=== PATIENT | female | born 1965 | race Caucasian/White ===

== ENCOUNTER 2017-02-13 00:19 | Inpatient (IN) | payer BC, OTHER ==
[~2017-02-13] VITALS: Ht 170.2 cm; Wt 82.1 kg
[2017-02-13 04:00] VITALS: BP 111/49
[2017-02-13] MEDS ORDERED: SPIRONOLACTONE1 GM PO (04:22)
[2017-02-13 07:14] LABS: BASOPHILS % (AUTO) 0.9 % (0.0-2.0); EOSINOPHILS % (AUTO) 2.3 % (0.0-3.0); LYMPHOCYTES % (AUTO) 38.2 % (20.0-45.0); MEAN CORPUSCULAR HEMOGLOBIN 31.2 PG (27.0-31.0); MEAN CORPUSCULAR HGB CONC 33.8 G/DL (32.0-36.0); MEAN CORPUSCULAR VOLUME 92 FL (80-99); MEAN PLATELET VOLUME 8.3 FL (6.5-10.1); MONOCYTES % (AUTO) 7.2 % (1.0-10.0); NEUTROPHILS % (AUTO) 51.4 % (45.0-75.0); PLATELET COUNT 218 K/UL (150-450); RED BLOOD COUNT 4.52 M/UL (4.20-5.40); RED CELL DISTRIBUTION WIDTH 11.1 % (11.6-14.8); WHITE BLOOD COUNT 6.7 K/UL (4.8-10.8)
[2017-02-13 07:33] LABS: ALANINE AMINOTRANSFERASE 12 U/L (3-33); ALBUMIN/GLOBULIN RATIO 1.5 (1.0-2.7); ANION GAP 17 (5-15); ASPARTATE AMINO TRANSFERASE 14 U/L (5-40); CARBON DIOXIDE 22 mEQ/L (20-30); CHLORIDE 99 mEQ/L (98-107); CREATININE 0.7 mg/dL (0.5-0.9); GLOMERULAR FILTRATION RATE > 60 mL/min (>60); HEMOLYSIS 6; MAGNESIUM 2.1 mg/dL (1.7-2.5); PHOSPHORUS 3.6 mg/dL (2.5-4.8); POTASSIUM 4.3 mEQ/L (3.4-4.9); SODIUM 138 mEQ/L (135-145); TOTAL PROTEIN 6.5 g/dL (6.6-8.7)
[2017-02-13 07:35] LABS: TROPONIN I < 0.30 ng/mL (<=0.30)
[2017-02-13 08:07] VITALS: BP 111/66
[2017-02-13] MEDS ORDERED: Spironolactone 50mg tab ORAL SCH (09:00)
[2017-02-13] MEDS ORDERED: Aspirin Baby 81mg ORAL SCH (09:00)
--- NOTE | 2017-02-13 10:59 | Cardiology Report ---
APPROVED REPORT EKG Measurement Heart [id number] MA [id number] Sinus rhythm with sinus arrhythmia with short MA with frequent premature ventricular complexes Otherwise normal ECG
[2017-02-13 11:40] VITALS: BP 112/67
[2017-02-13 13:11] LABS: TROPONIN I < 0.30 ng/mL (<=0.30)
[2017-02-13] MEDS ORDERED: Heparin 5000 units/ml inj SUBQ SCH (14:00)
[2017-02-13] MEDS ORDERED: ASPIRIN81 MG ORAL (14:53)
[2017-02-13] MEDS ORDERED: PROTONIX40 MG ORAL (14:53)
--- NOTE | 2017-02-13 15:01 | History & Physical ---
History and Physical History & Physicial Matt Maguire MD Feb 13, 2017 15:01
--- NOTE | 2017-02-13 22:19 | History and Physical Report ---
DATE OF ADMISSION: 02/13/2017 CHIEF COMPLAINT: Chest discomfort. HISTORY OF PRESENT ILLNESS: This is a 51-year-old very delightful female with past medical history significant for gestational diabetes with prediabetic, who has presented to the hospital complaining about sore throat, ear fullness, fatigue, recently had a cold and as well as chest discomfort. The patient stated that she was not feeling good. She initially went to the [facility] [place] and after further evaluation the patient was brought to the [facility] for further evaluation and possible cardiac workup. The patient denies any history of coronary disease, hypertension, diabetes, dyslipidemia or smoking. She has first-degree relative with a coronary artery disease. Denies any family member with history of coronary artery disease. She recently had a treadmill stress test about seven to eight years ago and was essentially unremarkable due to the chest pain. The patient stated that she has been under a lot of stress at this time because she was looking for position job that she did not successfully obtain. PAST MEDICAL HISTORY/PAST SURGICAL HISTORY: As above. History of gestational diabetes, prediabetic, and history of . MEDICATIONS: At home is significant for spironolactone 100 mg p.o. daily for hairloss. ALLERGIES: Allergies to sulfa medications. FAMILY HISTORY: Father has history of diabetes as well as prostate cancer, hypertension, his age of 77, and alive. Mother is healthy. SOCIAL HISTORY: Denies any smoking, alcohol, or drugs. 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 REVIEW OF SYSTEMS: Mostly as above. Denies any dysuria, frequency, or hematochezia. Denies any hemoptysis or hematochezia. Denies any suicidal or homicidal ideation. Denies any loss of consciousness. Denies any double vision, complained about sore throat. Denies any suicidal or homicidal ideation. PHYSICAL EXAMINATION: VITAL SIGNS: On admission to [facility] is significant for temperature 98 degrees, pulse of 54, respiration is 20, and blood pressure 111/49. GENERAL: The patient is awake, responsive, in no acute distress. HEENT: Pupils are reactive to light. Extraocular movements are intact. NECK: Supple. No JVD. LUNGS: Good air entry. No wheezing or rales. HEART: S1 and S2. Regular rhythm. No gallops. ABDOMEN: Soft and nontender. Mildly obese. EXTREMITIES: No cyanosis, clubbing, or edema. NEUROLOGIC: Cranial nerves II through XII are grossly intact. Moves all 4 extremities. Gait is intact. LABORATORY AND DIAGNOSTIC DATA: Laboratory on admission from the [facility], WBC of 6.8, hemoglobin of 14, hematocrit 40, and platelets is 231,000. Sodium 134, potassium 2.9, chloride 102, bicarbonate 23, BUN 15, creatinine 0.71 and GFR is 87. First troponin is less than 0.02 and repeat laboratories again, two other troponins are essential unremarkable at [facility]. The patient had an echocardiogram done in the [facility], preliminary results shows the ejection fraction of 60% with no evidence of left ventricular hypertrophy. All other cardiac chamber size within normal limits. Trace to mitral and tricuspid regurgitation. Trace tricuspid systolic velocities suggests of the right ventricular systolic pressure of 38. consisted with a borderline mild pulmonary hypertension. No pulmonic regurgitation presented. This is a preliminary result. EKG was done at [facility], was noted to be sinus rhythm with a ventricular rate of 49, sinus kev and short AZ interval of frequent premature ventricular ventricular complex was identified. Sinus rhythm with the sinus arrhythmias with the [place] premature ventricular contractions, ventricular rate is 72. ASSESSMENT: 1. Chest discomfort and possible acute coronary syndrome less likely. However, cannot rule out peptic ulcer disease. 2. History of premature ventricular contractions on the EKG. 3. Prediabetic with gestational diabetic. 4. Mild obesity. PLAN: Admit the patient to telemetry. The patient insisting that she wants to go home. Discussed with the patient extensively with regards to her finding. I advised the patient to follow up my office within one week in order to obtain a stress test and further imaging as needed as outpatient since the patient does not want to stay in the hospital to get the stress test done at this time. I discussed with the patient, if her status is not improving at home and she has a frequent symptoms she needs to come to the emergency room [facility] Emergency Room in order to get the stress test and further imaging as outpatient. The patient understood and the patient's boyfriend, who was in the room and he understood as well. At this time, the patient will be discharged home on Ecotrin 81 mg daily as well as Protonix 40 mg daily plus home medications. FOLLOWUP: I advised him to follow up my office within one week. Matt Maguire M.D. DR: LUPE JOB#: [id number] CC:
--- NOTE | 2017-02-14 15:55 | Cardiology Report ---
APPROVED REPORT EXAM: Two-dimensional and M-mode echocardiogram with Doppler and color Doppler. INDICATION Chest Pain M-Mode DIMENSIONS IVSd0.7 (0.7-1.1cm)Left Atrium (MM)2.5 (1.6-4.0cm) LVDd4.7 (3.5-5.6cm)Aortic Root2.4 (2.0-3.7cm) PWd0.6 (0.7-1.1cm)Aortic Cusp Exc.1.8 (1.5-2.0cm) LVDs3.2 (2.5-4.0cm) PWs1.1 cm Normal left ventricular chamber size, systolic function and wall motion. Left ventricular ejection fraction estimated to be 60 %. No evidence of left ventricular hypertrophy. Anterior Echo-free space, may be due to pericardial fat or effusion. All other cardiac chamber sizes are within normal limits. Mild focal aortic valve sclerosis with adequate cusp excursion. Mildly thickened mitral valve leaflets with normal excursion. Mitral annulus and aortic root calcification. Normal pulmonic valve structure. / Pulmonic valve not well visualized. Normal tricuspid valve structure. IVC measured at 2.2 cm with slight physiologic collapse suggestive of RAP 15 mmHg. A color flow and spectral Doppler study was performed and revealed: No aortic regurgitation. Trace mitral regurgitation. Mitral inflow indicates normal left ventricular diastolic function. Trace to mild tricuspid regurgitation. Tricuspid systolic velocities suggests peak right ventricular systolic pressure of 38 mmHg, consistent with borderline mild pulmonary hypertension. No pulmonic regurgitation present.
--- NOTE | 2017-02-14 20:02 | Discharge Summary ---
Discharge Summary Hospital Course Date of Admission Feb 13, 2017 at 02:53 Date of Discharge Feb 13, 2017 at 15:15 Admitting Diagnosis HPI Eboni Matos is a 51 year old female who was admitted on Feb 13, 2017 at 02: 53 for Acute Coronary Syndrome Hospital Course This is a 51-year-old very delightful female with past medical history significant for gestational diabetes with prediabetic, who has presented to the hospital complaining about sore throat, ear fullness, fatigue, recently had a cold and as well as chest discomfort. The patient stated that she was not feeling good. She initially went to the [facility] and after further evaluation the patient was brought to the [facility] for further evaluation and possible cardiac workup. The patient denies any history of coronary disease, hypertension, diabetes, dyslipidemia or smoking. She has first-degree relative with a coronary artery disease. Denies any family member with history of coronary artery disease. She recently had a treadmill stress test about seven to eight years ago and was essentially unremarkable due to the chest pain. The patient stated that she has been under a lot of stress at this time because she was looking for position job that she did not successfully obtain. The patient was insisting that she wants to go home. Discussed with the patient extensively with regards to her finding. I advised the patient to follow up my office within one week in order to obtain a stress test and further imaging as needed as outpatient since the patient does not want to stay in the hospital to get the stress test done at this time. I discussed with the patient, if her status is not improving at home and she has a frequent symptoms she needs to come to the emergency room at [facility] Room in order to get the stress test and further imaging as outpatient. The patient understood and the patient's boyfriend, who was in the room and he understood as well. At this time, the patient will be discharged home on Ecotrin 81 mg daily as well as Protonix 40 mg daily plus home medications. FOLLOWUP: I advised him to follow up my office within one week. DIAGNOSIS: 1. Chest discomfort and possible acute coronary syndrome less likely. However, cannot rule out peptic ulcer disease. 2. History of premature ventricular contractions on the EKG. 3. Prediabetic with gestational diabetic. 4. Mild obesity. -------COPIED FROM H&P Discharge Discharge Disposition Patient was discharged to Home () Discharge Diagnoses: Shabana Juárez NP Feb 14, 2017 20:02
== END 2017-02-13 15:15 | DRG 313 ==
LOC: 2E 02:53
DX: R07.89 Other chest pain (principal); E66.9 Obesity, unspecified; R73.03 Prediabetes; Z68.28 Body mass index [BMI] 28.0-28.9, adult
CPT/HCPCS: 36415; 80053; 83735; 84100; 84484; 85025; 93005; 93306